=== PATIENT | male | born 1950 | race Caucasian/White ===

== ENCOUNTER 2017-11-30 13:54 | Emergency (ER) | payer OTHER, MEDICAID | END 2017-11-30 15:24 | disposition left against medical advice (07) | LOC: FTE 15:24 | DX: Z53.21 Procedure and treatment not carried out due to patient leaving prior to being seen by health care provider (principal) ==

== ENCOUNTER 2018-03-15 17:39 | Emergency (ER) | payer OTHER, MEDICAID ==
[2018-03-15] MEDS: KETOROLAC 30 MG INJ IM (18:00)
== END 2018-03-15 19:06 | disposition home or self-care (01) ==
LOC: FTE 17:39
DX: S46.911A Strain of unspecified muscle, fascia and tendon at shoulder and upper arm level, right arm, initial encounter (principal); W01.0XXA Fall on same level from slipping, tripping and stumbling without subsequent striking against object, initial encounter; Y92.9 Unspecified place or not applicable
CPT/HCPCS: 73030; 73030-RT; 73080-RT; 93971; 96372; 99285-25